=== PATIENT | female | born 1990 | race Two or more races ===

== ENCOUNTER 2019-10-16 17:42 | Inpatient (IN) | payer OTHER ==
[2019-10-22] MEDS ORDERED: PRENATABS FA T1 EACH PO (11:37)
[2019-10-22] MEDS ORDERED: IRON PO (11:37)
[2019-10-22] MEDS ORDERED: TUM PO (11:38)
[2019-10-22] MEDS ORDERED: IRON236 MG PO (15:29)
[2019-10-22] MEDS ORDERED: TUMS300 MG PO (15:30)
== END 2019-10-25 19:56 | disposition home or self-care (01) | DRG 788 ==
LOC: OB/GYN 10-22 07:00 → O/R 10-22 13:31 → OB/GYN 10-22 17:36
PROVIDERS: ADMIT Obstetrics & Gynecology; ATTEND Obstetrics & Gynecology
PROC: 4A1HXFZ Monitoring of Products of Conception, Cardiac Rhythm, External Approach (ICD-10-PCS; 2019-10-22)
PROC: 3E033VJ Introduction of Other Hormone into Peripheral Vein, Percutaneous Approach (ICD-10-PCS; 2019-10-22)
PROC: 10D00Z1 Extraction of Products of Conception, Low, Open Approach (ICD-10-PCS; principal; 2019-10-22 07:00)
DX: O34.211 Maternal care for low transverse scar from previous cesarean delivery (principal); Z37.0 Single live birth; Z3A.39 39 weeks gestation of pregnancy

== ENCOUNTER 2022-05-06 08:33 | Outpatient (CLI) | payer OTHER ==
[~2022-05-06 08:33] MED LIST: IRON PO; IRON236 MG PO; PRENATABS FA T1 EACH PO; TUM PO; TUMS300 MG PO
== END 2022-05-06 09:45 | disposition home or self-care (01) ==
LOC: PRENATAL 08:33
PROVIDERS: ATTEND Obstetrics & Gynecology Maternal & Fetal Medicine
DX: O36.80X0 Pregnancy with inconclusive fetal viability, not applicable or unspecified (principal); O34.80 Maternal care for other abnormalities of pelvic organs, unspecified trimester; O34.219 Maternal care for unspecified type scar from previous cesarean delivery; Z3A.11 11 weeks gestation of pregnancy

== ENCOUNTER 2022-07-11 08:04 | Outpatient (CLI) | payer OTHER | END 2022-07-11 09:15 | disposition home or self-care (01) | LOC: PRENATAL 08:04 | PROVIDERS: ATTEND Obstetrics & Gynecology Maternal & Fetal Medicine | DX: O35.9XX0 Maternal care for (suspected) fetal abnormality and damage, unspecified, not applicable or unspecified (principal); O35.3XX0 Maternal care for (suspected) damage to fetus from viral disease in mother, not applicable or unspecified; O34.219 Maternal care for unspecified type scar from previous cesarean delivery; O34.80 Maternal care for other abnormalities of pelvic organs, unspecified trimester; Z3A.20 20 weeks gestation of pregnancy ==

== ENCOUNTER 2022-10-04 09:20 | Outpatient (CLI) | payer OTHER | END 2022-10-04 12:02 | disposition home or self-care (01) | LOC: PRENATAL 09:20 | PROVIDERS: ATTEND Obstetrics & Gynecology Maternal & Fetal Medicine | DX: O26.849 Uterine size-date discrepancy, unspecified trimester (principal); O36.8199 Decreased fetal movements, unspecified trimester, other fetus; O34.219 Maternal care for unspecified type scar from previous cesarean delivery; Z3A.32 32 weeks gestation of pregnancy ==

== ENCOUNTER 2022-11-09 07:45 | Inpatient (IN) | payer OTHER ==
[~2022-11-09] VITALS: Ht 165.1 cm; Wt 3.2 kg
[2022-11-09 11:11] LABS: URINE APPEARANCE Clear; URINE BILIRRUBIN Negative (NEGATIVE); URINE BLOOD Negative; URINE COLOR Yellow; URINE GLUCOSE Negative (NEGATIVE); URINE LEUKOCYTE Moderate; URINE NITRATE Negative; URINE PROTEIN Negative (NEGATIVE)
[2022-11-09 11:13] LABS: HEMATOCRIT 31.7 % (36.0-45.00); HEMOGLOBIN 10.6 g/dL (12.0-15.00); MEAN CELL VOLUME 89.2 fL (80.00-100.00); MEAN CORPUSCULAR HEMOGLOBIN 29.8 pg (27.00-32.0); MEAN CORPUSCULAR HGB CONC 33.4 g/dl (32.0-36.0); PLATELET COUNT 163 K/uL (150-450); RED BLOOD COUNT 3.55 M/uL (4.00-6.00)
[2022-11-09 11:15] LABS: URINE BACTERIA 1183.1 uL (0.0-1933); URINE EPITHELIAL CELLS 60.5 uL (0.0-38.8); URINE RBC 3.1 uL (0.0-20.8)
[2022-11-09 11:36] LABS: INR 0.97; PROTHROMBIN TIME 10.2 SECONDS (9.0-11.5)
[2022-11-09 11:51] LABS: ALBUMIN 2.8 gm/dL (3.4-5.0); BILIRUBIN TOTAL 0.18 mg/dL (0.3-1.2); CALCIUM 8.9 mg/dL (8.5-10.1); CREATININE SERUM 0.36 mg/dL (0.55-1.02); GFR 210.24; GLOBULINA 3.5 G/DL (2.4-3.5); POTASSIUM 3.82 mEq/L (3.5-5.1); TOTAL PROTEIN 6.3 gm/dL (6.4-8.2)
[2022-11-15 19:07] LABS: ABG PH 7.255 (7.35-7.45); ABG pCO2 47.7 mmHg (35-45); BASE EXCESS -6.6 mmol/l; BICARBONATE 20.7 mmol/l (23-25); SaO2 68.2 %; Tco2 22.1 mmol/l
[2022-11-15 21:43] LABS: ABG PO2 42.6 mmHg (80-100); o2 21 %
[2022-11-15 23:23] LABS: MEAN CELL VOLUME 90.9 fL (80.00-100.00); MEAN CORPUSCULAR HEMOGLOBIN 29.2 pg (27.00-32.0); MEAN CORPUSCULAR HGB CONC 32.1 g/dl (32.0-36.0); RED BLOOD COUNT 3.63 M/uL (4.00-6.00); RED CELL DISTRIBUTION WIDTH 19.5 % (11.5-14.5)
[2022-11-15 23:37] LABS: HEMOGLOBIN 10.6 g/dL (12.0-15.00); PLATELET COUNT 143 K/uL (150-450)
== END 2022-11-18 16:33 | disposition home or self-care (01) | DRG 787 ==
LOC: LDR 11-15 12:50 → OB/GYN 11-15 19:18 → LDR 11-17 07:45 → OB/GYN 11-18 16:33
PROVIDERS: ADMIT Student in an Organized Health Care Education/Training Program; ATTEND Student in an Organized Health Care Education/Training Program
PROC: 4A1HXCZ Monitoring of Products of Conception, Cardiac Rate, External Approach (ICD-10-PCS; 2022-11-15)
PROC: 10D00Z1 Extraction of Products of Conception, Low, Open Approach (ICD-10-PCS; principal; 2022-11-15 17:30)
DX: O34.211 Maternal care for low transverse scar from previous cesarean delivery (principal); O41.03X0 Oligohydramnios, third trimester, not applicable or unspecified; Z3A.38 38 weeks gestation of pregnancy; Z37.0 Single live birth; Z20.822 Contact with and (suspected) exposure to COVID-19

== ENCOUNTER 2024-02-14 19:42 | Emergency (ER) | payer OTHER ==
[~2024-02-14] VITALS: Ht 167.6 cm; Wt 77.1 kg
[2024-02-14 23:53] LABS: HEMATOCRIT 29.2 % (36.0-45.00); HEMOGLOBIN 10.3 g/dL (12.0-15.00); MEAN CELL VOLUME 89.7 fL (80.00-100.00); MEAN CORPUSCULAR HEMOGLOBIN 31.7 pg (27.00-32.0); MEAN CORPUSCULAR HGB CONC 35.3 g/dl (32.0-36.0); PLATELET COUNT 209 K/uL (150-450); RED BLOOD COUNT 3.26 M/uL (4.00-6.00); RED CELL DISTRIBUTION WIDTH 12.7 % (11.5-14.5)
[2024-02-15] MEDS ORDERED: GUAIFENESIN 200 MG/10 ML BLIST.PACK PO STA (02:54)
[2024-02-15] MEDS ORDERED: CETIRIZINE HCL 5 MG/5 ML ML PO STA (02:55)
[2024-02-15] MEDS ORDERED: ALBUTEROL SULFATE 3 ML/2.5 MG AMPUL.NEB IH SCH (03:00)
[2024-02-15] MEDS ORDERED: GUAIFENESIN 200 MG/10 ML BLIST.PACK PO ONE (03:01)
[2024-02-15] MEDS ORDERED: CETIRIZINE HCL 5MG/5ML BLIST.PACK PO ONE (03:01)
[2024-02-15] MEDS ORDERED: ALBUTEROL SULFATE 3 ML/2.5 MG AMPUL.NEB IH ONE (03:01)
[2024-02-15] MEDS ORDERED: ALBUTEROL2.5 MG/3 M IH (03:03)
[2024-02-15] MEDS ORDERED: ZYRTEC10 M3 PO (03:03)
== END 2024-02-15 03:30 ==
LOC: ER 19:45
PROVIDERS: Preventive Medicine Public Health & General Preventive Medicine
DX: O99.512 Diseases of the respiratory system complicating pregnancy, second trimester (principal); J40 Bronchitis, not specified as acute or chronic; Z3A.19 19 weeks gestation of pregnancy; Z20.822 Contact with and (suspected) exposure to COVID-19

== ENCOUNTER 2024-06-28 10:45 | Inpatient (IN) | payer OTHER ==
[~2024-06-28] VITALS: Ht 167.6 cm; Wt 3.2 kg
[~2024-06-28 10:45] MED LIST changes: +ALBUTEROL2.5 MG/3 M IH; +ZYRTEC10 M3 PO
[2024-06-28 12:22] LABS: BASO % 0.4 % (0.1-1.2); EOS # 0.05 (0.04-0.54); EOS % 0.5 % (0.7-7.0); HEMATOCRIT 33.1 % (34.1-44.9); HEMOGLOBIN 10.1 g/dL (11.2-15.7); LYMPH # 1.53 (1.18-3.74); LYMPH % 15.3 % (19.3-53.1); MONO # 0.63 (0.24-0.82); MONO % 6.3 % (4.7-12.5); NEUT # 7.52 (1.56-6.13); NEUT % 75.3 % (34.0-71.1); PLATELET COUNT 168 K/uL (163-369); RED BLOOD COUNT 3.89 M/uL (3.93-5.22); RED CELL DISTRIBUTION WIDTH 20.6 % (11.6-14.4)
[2024-06-28 12:39] LABS: COVID-19 AG NEGATIVE (NEGATIVE)
[2024-06-28 12:57] LABS: ALBUMIN 2.8 gm/dL (3.4-5.0); BILIRUBIN TOTAL 0.38 mg/dL (0.3-1.2); CALCIUM 8.6 mg/dL (8.5-10.1); CREATININE SERUM 0.55 mg/dL (0.55-1.02); GFR 127.29; GLOBULINA 3.6 G/DL (2.4-3.5); POTASSIUM 3.59 mEq/L (3.5-5.1); TOTAL PROTEIN 6.4 gm/dL (6.4-8.2)
[2024-06-28 13:12] LABS: URINE APPEARANCE Clear; URINE BILIRRUBIN Negative (NEGATIVE); URINE BLOOD Negative; URINE COLOR Yellow; URINE GLUCOSE Negative (NEGATIVE); URINE KETONE Negative (NEGATIVE); URINE LEUKOCYTE Small; URINE NITRATE Negative; URINE PROTEIN Negative (NEGATIVE)
[2024-06-28 13:17] LABS: INR 0.98; PARTIAL THROMBOPLASTIN TIME 23.9 SECONDS (22.0-34.0); PROTHROMBIN TIME 10.7 SECONDS (9.0-11.5)
[2024-06-28 13:23] LABS: URINE EPITHELIAL CELLS 91.5 uL (0.0-38.8); URINE RBC 2.2 uL (0.0-20.8); URINE WBC 30.5 uL (0.0-23.2)
[2024-07-03 10:00] VITALS: BP 123/86
[2024-07-03] MEDS ORDERED: CITRIC ACID/SODIUM CITRATE 30 ML BLIST.PACK PO ONE (10:44)
[2024-07-03] MEDS ORDERED: CEFAZOLIN SODIUM 1,000 MG VIAL ONE (10:44)
[2024-07-03] MEDS ORDERED: OXYTOCIN 10 UNITS/ML VIAL ONE (12:00)
[2024-07-03] MEDS ORDERED: ERYTHROMYCIN BASE OPHT 1GM EACH TUBE OP ONE (12:01)
[2024-07-03] MEDS ORDERED: MORPHINE SULFATE 4 MG/ML CARTRIDGE IV SCH (14:31)
[2024-07-03] MEDS ORDERED: KETOROLAC TROMETHAMINE 30 MG VIAL IV SCH (14:32)
[2024-07-03] MEDS ORDERED: OXYTOCIN 1,000 ML IV ONE (14:45)
[2024-07-03] MEDS ORDERED: MORPHINE SULFATE 4 MG/ML VIAL IV ONE (16:05)
[2024-07-03] MEDS ORDERED: GABAPENTIN 300 MG CAPSULE PO SCH (17:00)
[2024-07-03] MEDS ORDERED: KETOROLAC TROMETHAMINE 30 MG VIAL ONE (17:54)
[2024-07-03 18:53] VITALS: BP 133/79
[2024-07-04 01:29] VITALS: BP 131/83; O2SAT 98
[2024-07-04] MEDS ORDERED: ACETAMINOPHEN 500 MG GEL..CAP PO SCH (06:00)
[2024-07-04 07:06] LABS: BASO % 0.3 % (0.1-1.2); EOS # 0.06 (0.04-0.54); EOS % 0.7 % (0.7-7.0); HEMOGLOBIN 9.9 g/dL (11.2-15.7); LYMPH # 0.94 (1.18-3.74); LYMPH % 10.9 % (19.3-53.1); MEAN CORPUSCULAR HEMOGLOBIN 26.6 pg (25.6-32.2); MONO # 0.66 (0.24-0.82); MONO % 7.7 % (4.7-12.5); NEUT # 6.85 (1.56-6.13); NEUT % 79.8 % (34.0-71.1); PLATELET COUNT 146 K/uL (163-369); RED BLOOD COUNT 3.72 M/uL (3.93-5.22)
[2024-07-04 08:00] VITALS: BP 106/69
[2024-07-04] MEDS ORDERED: IRON FUM,PS/FOLIC/BCOMP,C NO.9 1 CAP CAPSULE PO SCH (09:00)
[2024-07-04] MEDS ORDERED: DOCUSATE SODIUM 100MG CAP PO SCH (09:00)
[2024-07-04] MEDS ORDERED: PNV,CALCIUM 72/IRON/FOLIC ACID 1 TAB TABLET PO SCH (09:00)
[2024-07-04] MEDS ORDERED: SIMETHICONE 125 MG CAPSULE PO SCH (09:00)
[2024-07-04] MEDS ORDERED: IBUprofen 600 MG TABLET PO SCH (12:00)
[2024-07-04 16:03] VITALS: BP 127/82; O2SAT 98
[2024-07-04 20:00] VITALS: BP 122/86
[2024-07-05 01:36] VITALS: BP 110/75; O2SAT 98
[2024-07-05 08:00] VITALS: BP 109/75
== END 2024-07-05 15:31 | disposition home or self-care (01) | DRG 785 ==
LOC: LDR 07-03 08:20 → O/R 07-03 08:29 → OB/GYN 07-03 08:29 → LDR 07-03 10:45 → OB/GYN 07-03 13:50
PROVIDERS: ADMIT Obstetrics & Gynecology Gynecology; ATTEND Obstetrics & Gynecology Gynecology
PROC: 0UB70ZZ Excision of Bilateral Fallopian Tubes, Open Approach (ICD-10-PCS; 2024-07-03)
PROC: 0UB00ZZ Excision of Right Ovary, Open Approach (ICD-10-PCS; 2024-07-03)
PROC: 4A1HXCZ Monitoring of Products of Conception, Cardiac Rate, External Approach (ICD-10-PCS; 2024-07-03)
PROC: 10D00Z1 Extraction of Products of Conception, Low, Open Approach (ICD-10-PCS; principal; 2024-07-03 08:20)
DX: O34.83 Maternal care for other abnormalities of pelvic organs, third trimester (principal); D27.0 Benign neoplasm of right ovary; O34.211 Maternal care for low transverse scar from previous cesarean delivery; Z30.2 Encounter for sterilization; Z37.0 Single live birth; Z3A.39 39 weeks gestation of pregnancy